=== PATIENT | female | born 1940 | race Caucasian/White ===

== ENCOUNTER 2019-10-09 18:50 | Emergency (ER) | payer OTHER ==
[~2019-10-09] VITALS: Ht 142.2 cm; Wt 38.6 kg
[2019-10-09] MEDS ORDERED: TETANUS/DIPHTHERIA TOX ADULT 0.5 ML SYR IM ONE (19:30)
== END 2019-10-09 20:10 | disposition home or self-care (01) ==
LOC: FSED 18:50
DX: S81.811A Laceration without foreign body, right lower leg, initial encounter (principal); W18.30XA Fall on same level, unspecified, initial encounter; Y92.008 Other place in unspecified non-institutional (private) residence as the place of occurrence of the external cause
CPT/HCPCS: 90471; 90714; 99282

== ENCOUNTER 2020-09-29 11:16 | Emergency (ER) | payer OTHER ==
[~2020-09-29] VITALS: Ht 142.2 cm; Wt 33.6 kg
[2020-09-29] MEDS ORDERED: ONDANSETRON HCL INJ 2MG/ML 2ML 2 MG/ML VIAL IV STA (11:44)
[2020-09-29] MEDS ORDERED: SODIUM CHLORIDE 0.9% 50ML 50 ML ONE (12:23)
[2020-09-29] MEDS ORDERED: ONDANSETRON HCL INJ 2MG/ML 2ML 2 MG/ML VIAL ONE (12:24)
[2020-09-29] MEDS ORDERED: IOPAMIDOL 370 MG/ML 200 ML INFUS..BTL INJ ONE (12:24)
[2020-09-29 13:33] VITALS: BP 99/53
[2020-09-29] MEDS ORDERED: DICYCLOMINE HCL10 MG PO (13:45)
[2020-09-29] MEDS ORDERED: ZOFRAN4 MG SL (13:45)
[2020-09-29] MEDS ORDERED: CIPRO500 MG PO (13:45)
== END 2020-09-29 13:48 | disposition home or self-care (01) ==
LOC: FSED 11:53
DX: R10.32 Left lower quadrant pain (principal); R11.0 Nausea; I10 Essential (primary) hypertension; E78.5 Hyperlipidemia, unspecified; M81.0 Age-related osteoporosis without current pathological fracture; N32.81 Overactive bladder
CPT/HCPCS: 74177; 80048; 80076; 81003; 85025; 99284; J2405; Q9967